=== PATIENT | female | born 1965 | race Caucasian/White ===

== ENCOUNTER → 2016-12-26 | Day surgery (SDC) | payer MEDICARE, SELFPAY ==
[~2016-12-26] VITALS: Ht 180.3 cm; Wt 87.7 kg
== END | disposition home or self-care (01) ==
LOC: FAS 07:29
DX: K20.9 Esophagitis, unspecified (principal); K31.7 Polyp of stomach and duodenum; K63.5 Polyp of colon; E03.9 Hypothyroidism, unspecified; Z79.899 Other long term (current) drug therapy; Z98.890 Other specified postprocedural states; Z90.710 Acquired absence of both cervix and uterus; Z90.49 Acquired absence of other specified parts of digestive tract; F41.9 Anxiety disorder, unspecified; F32.9 Major depressive disorder, single episode, unspecified; G43.909 Migraine, unspecified, not intractable, without status migrainosus; G40.909 Epilepsy, unspecified, not intractable, without status epilepticus; Z80.0 Family history of malignant neoplasm of digestive organs; K64.8 Other hemorrhoids
CPT/HCPCS: 88305; J2704